=== PATIENT | male | born 1990 | race Caucasian/White ===

== ENCOUNTER 2018-05-06 04:31 | Emergency (ER) | payer BC | END 2018-05-06 05:07 | disposition home or self-care (01) | LOC: FTE 04:31 | DX: R21 Rash and other nonspecific skin eruption (principal) | CPT/HCPCS: 99282 ==

== ENCOUNTER 2018-12-15 11:44 | Emergency (ER) | payer SELFPAY, BC | END 2018-12-15 22:36 | disposition left against medical advice (07) | LOC: E/R 22:36 | DX: Z53.21 Procedure and treatment not carried out due to patient leaving prior to being seen by health care provider (principal) ==